=== PATIENT | male | born 1970 | race Caucasian/White ===

== ENCOUNTER 2018-05-17 13:49 | Emergency (ER) | payer BC ==
[~2018-05-17] VITALS: Ht 182.9 cm; Wt 100.0 kg
[2018-05-17 13:50] VITALS: BP 149/96
== END 2018-05-17 14:32 | disposition home or self-care (01) ==
LOC: ER 13:50
DX: L91.8 Other hypertrophic disorders of the skin (principal); Z87.891 Personal history of nicotine dependence
CPT/HCPCS: 99281